=== PATIENT | male | born 1945 | race Caucasian/White ===

== ENCOUNTER 2016-12-01 10:38 | Inpatient (IN) | payer MEDICARE, MEDICAID ==
[2016-12-01] VITALS (8 sets, daily range): BP systolic 132–186; BP diastolic 40–94
[~2016-12-01] VITALS: Ht 165.1 cm; Wt 60.8 kg
[2016-12-01 12:11] LABS: HEMATOCRIT 38.4 % (42.0-52.0); HEMOGLOBIN 12.5 g/dL (14.0-18.0); MEAN CORPUSCULAR HEMOGLOBIN 30.2 pg (28.0-32.0); MEAN CORPUSCULAR HGB CONC 32.6 g/dL (31.0-37.0); MEAN CORPUSCULAR VOLUME 92.6 fL (80.0-94.0); PLATELET 101 x1000/uL (130-400); RED BLOOD CELL COUNT 4.15 mill/uL (4.7-6.1); RED CELL DISTRIBUTION WIDTH 15.6 % (11.6-14.6); WHITE BLOOD COUNT 3.6 x1000/uL (4.5-11.0)
[2016-12-01 12:19] LABS: INR 1.1
[2016-12-01] MEDS ORDERED: ASPIRIN/SOD BICARB/CITRIC ACID 324MG TAB EFF ONE (12:21)
[2016-12-01 12:23] LABS: CALCIUM 8.9 mg/dL (8.5-10.1)
[2016-12-01] MEDS ORDERED: MIDAZOLAM HCL 2 MG/2 ML VIAL ONE (12:55)
[2016-12-01] MEDS ORDERED: IODIXANOL 320MG/ML 100 ML BOTTLE IV ONE ×2 (12:55→13:32)
[2016-12-01] MEDS ORDERED: FENTANYL CITRATE/PF 50MCG/ML 2ML VIAL ONE (12:55)
[2016-12-01] MEDS ORDERED: LIDOCAINE HCL 1% 20ML VIAL (Pyxis) INJ ONE (12:56)
[2016-12-01] MEDS ORDERED: HEPARIN SODIUM 1,000 UNIT/1ML VIAL IV ONE ×2 (13:00→13:30)
[2016-12-01] MEDS ORDERED: IOVERSOL 240MG/ML 100ML BOTTLE IV ONE (13:32)
[2016-12-01] MEDS ORDERED: CLOPIDOGREL 75MG TABLET ONE (14:38)
[2016-12-01] MEDS ORDERED: ATROPINE SULFATE 1MG/10ML SYR IV PRN (15:00)
[2016-12-01] MEDS ORDERED: ONDANSETRON HCL 4MG/2ML VIAL IV PRN (15:00)
[2016-12-01] MEDS ORDERED: MORPHINE SULFATE 2 MG/ML CPJ (NOT FOR IM USE) IV PRN (15:00)
[2016-12-01] MEDS ORDERED: DEXTROSE 50% WATER 50ML SYRINGE IV PRN (15:00)
[2016-12-01] MEDS ORDERED: ACETAMINOPHEN 325MG TABLET PO PRN (15:00)
[2016-12-01] MEDS: INSULIN LISPRO 100 UNITS/ML SUBCUT SCH ×2 (17:20→20:56)
[2016-12-01] MEDS: BLOOD SUGAR DIAGNOSTIC STRIP TEST SCH ×2 (17:33→20:56)
[2016-12-01 19:49] LABS: INR 1.1; PARTIAL THROMBOPLASTIN TIME 34.1 sec (24.0-34.0); PROTHROMBIN TIME 11.3 sec
[2016-12-02] VITALS (8 sets, daily range): BP systolic 105–142; BP diastolic 48–61
[2016-12-02] MEDS: METOPROLOL TARTRATE 25MG TABLET PO SCH ×2 (00:19→09:00)
[2016-12-02 06:40] LABS: BASOPHILS % 0.5 % (0.0-2.0); EOSINOPHILS % 2.6 % (0.0-5.0); HEMATOCRIT. 33.7 % (42.0-52.0); HEMOGLOBIN. 11.1 g/dL (14.0-18.0); LYMPHOCYTES % 19.6 % (20.0-50.0); MEAN CORPUSCULAR HEMOGLOBIN 30.1 pg (28.0-32.0); MEAN CORPUSCULAR VOLUME 91.2 fL (80.0-94.0); MEAN PLATELET VOLUME 11.1 fl (7.4-10.4); MONOCYTES % 11.6 % (2.0-8.0); NEUTROPHILS % 65.7 % (40.0-76.0); PLATELET 101 x1000/uL (130-400); RED BLOOD CELL COUNT 3.69 mill/uL (4.7-6.1); RED CELL DISTRIBUTION WIDTH 15.3 % (11.6-14.6)
[2016-12-02] MEDS: INSULIN LISPRO 100 UNITS/ML SUBCUT SCH (06:52)
[2016-12-02] MEDS: BLOOD SUGAR DIAGNOSTIC STRIP TEST SCH (06:52)
[2016-12-02 07:30] LABS: CALCIUM 8.4 mg/dL (8.5-10.1); MAGNESIUM 3.1 mg/dL (1.8-2.4); PHOSPHORUS 3.5 mg/dL (2.5-4.9)
[2016-12-02] MEDS ORDERED: ASPIRIN 325MG TABLET PO SCH (09:00)
[2016-12-02] MEDS ORDERED: CLOPIDOGREL 75MG TABLET PO SCH (09:00)
== END 2016-12-02 12:45 | disposition home or self-care (01) | DRG 246 ==
LOC: CCL 10:38 → 3WST 15:10
PROVIDERS: ADMIT Specialist; ATTEND Specialist
PROC: 027035Z Dilation of Coronary Artery, One Artery with Two Drug-eluting Intraluminal Devices, Percutaneous Approach (ICD-10-PCS; principal; 2016-12-01)
PROC: B2131ZZ Fluoroscopy of Multiple Coronary Artery Bypass Grafts using Low Osmolar Contrast (ICD-10-PCS; 2016-12-01)
PROC: B3111ZZ Fluoroscopy of Right Brachiocephalic-Subclavian Artery using Low Osmolar Contrast (ICD-10-PCS; 2016-12-01)
PROC: 4A023N7 Measurement of Cardiac Sampling and Pressure, Left Heart, Percutaneous Approach (ICD-10-PCS; 2016-12-01)
PROC: B2111ZZ Fluoroscopy of Multiple Coronary Arteries using Low Osmolar Contrast (ICD-10-PCS; 2016-12-01)
PROC: B2161ZZ Fluoroscopy of Right and Left Heart using Low Osmolar Contrast (ICD-10-PCS; 2016-12-01)
PROC: B2121ZZ Fluoroscopy of Single Coronary Artery Bypass Graft using Low Osmolar Contrast (ICD-10-PCS; 2016-12-01)
PROC: B2181ZZ Fluoroscopy of Left Internal Mammary Bypass Graft using Low Osmolar Contrast (ICD-10-PCS; 2016-12-01)
DX: I25.10 Atherosclerotic heart disease of native coronary artery without angina pectoris (principal); N18.6 End stage renal disease; I13.11 Hypertensive heart and chronic kidney disease without heart failure, with stage 5 chronic kidney disease, or end stage renal disease; I47.1 Supraventricular tachycardia; E11.21 Type 2 diabetes mellitus with diabetic nephropathy; I42.0 Dilated cardiomyopathy; E11.22 Type 2 diabetes mellitus with diabetic chronic kidney disease; E11.51 Type 2 diabetes mellitus with diabetic peripheral angiopathy without gangrene; E78.00 Pure hypercholesterolemia, unspecified; E78.5 Hyperlipidemia, unspecified; E83.39 Other disorders of phosphorus metabolism; E87.5 Hyperkalemia; I25.5 Ischemic cardiomyopathy; I25.82 Chronic total occlusion of coronary artery; I08.1 Rheumatic disorders of both mitral and tricuspid valves; I27.2 Other secondary pulmonary hypertension; D64.9 Anemia, unspecified; I49.5 Sick sinus syndrome; I70.8 Atherosclerosis of other arteries; I77.1 Stricture of artery; Z90.49 Acquired absence of other specified parts of digestive tract; Z90.5 Acquired absence of kidney; Z95.0 Presence of cardiac pacemaker; Z95.1 Presence of aortocoronary bypass graft; Z99.2 Dependence on renal dialysis; Z98.890 Other specified postprocedural states
CPT/HCPCS: 36415; 80048; 82962; 83735; 84100; 84132; 85025; 85027; 85347; 85610; 85730; 92928; 93005; 93459; C1725; C1726; C1769; C1887; C1893; J0461; J1644; J2250; J3010; J3490; Q9967

== ENCOUNTER 2017-06-28 13:42 | Inpatient (IN) | payer MEDICARE, MEDICAID ==
[~2017-06-28] VITALS: Ht 165.1 cm; Wt 63.3 kg
[~2017-06-28 13:42] MED LIST: ACAR50TA PO; ASPI-1159 PO; ATOR10TA PO; CILO100T PO; CLOP75TA33 PO; DOCU-138 PO; FAMO20TA8 PO; FERR-63 PO; FOLI-43 PO; FOLI0.8T23 PO; LOPE2TAB26 PO; METO25TA6 PO; SEVE800T8 PO; SITA50TA3 PO
[2017-06-28] MEDS ORDERED: ACETAMINOPHEN 325MG TABLET PO STA (14:00)
[2017-06-28] MEDS ORDERED: SODIUM CHLORIDE 0.9% 250 ML IV ONE (14:00)
[2017-06-28 14:39] LABS: INR 1.4; PROTHROMBIN TIME 14.7 sec (9.4-11.6)
[2017-06-28 14:41] LABS: HEMATOCRIT. 30.1 % (42.0-52.0); HEMOGLOBIN. 10.2 g/dL (14.0-18.0); MEAN CORPUSCULAR VOLUME 85.3 fL (80.0-94.0); MEAN PLATELET VOLUME 10.2 fl (7.4-10.4); PLATELET 249 x1000/uL (130-400); RED BLOOD CELL COUNT 3.52 mill/uL (4.7-6.1); RED CELL DISTRIBUTION WIDTH 18.5 % (11.6-14.6)
[2017-06-28 14:54] LABS: CARBON DIOXIDE 27 mEq/L (21-32); CHLORIDE 89 mEq/L (98-107)
[2017-06-28] MEDS ORDERED: VANCOMYCIN 1 G PREMIX 200 ML IV ONE (15:00)
[2017-06-28] MEDS ORDERED: PIPERACILLIN/TAZ 3.375G PREMIX 50 ML IV ONE (15:00)
[2017-06-28 15:53] LABS: TROPONIN I 0.63 ng/mL (0.00-0.04)
[2017-06-28] MEDS ORDERED: ASPIRIN 81MG TABLET PO ONE (16:00)
[2017-06-28 16:21] LABS: PLATELET ESTIMATE NORMAL
[2017-06-28 23:00] VITALS: BP 90/41
[2017-06-28 23:14] VITALS: BP 90/41
[2017-06-29] VITALS (15 sets, daily range): BP systolic 83–112; BP diastolic 39–55
[2017-06-29] MEDS ORDERED: DEXTROSE 50% WATER 50ML SYRINGE IV PRN (00:15)
[2017-06-29] MEDS: BLOOD SUGAR DIAGNOSTIC STRIP TEST SCH ×4 (05:48→21:11)
[2017-06-29] MEDS: INSULIN LISPRO 100 UNITS/ML SUBCUT SCH ×5 (05:48→21:11)
[2017-06-29 07:42] LABS: HEMATOCRIT. 34.9 % (42.0-52.0); HEMOGLOBIN. 11.3 g/dL (14.0-18.0); MEAN CORPUSCULAR VOLUME 86.4 fL (80.0-94.0); MEAN PLATELET VOLUME 9.5 fl (7.4-10.4); PLATELET 134 x1000/uL (130-400); RED BLOOD CELL COUNT 4.04 mill/uL (4.7-6.1); RED CELL DISTRIBUTION WIDTH 17.4 % (11.6-14.6)
[2017-06-29 08:06] LABS: PHOSPHORUS 1.9 mg/dL (2.5-4.9)
[2017-06-29] MEDS: FOLIC ACID/VITAMIN B COMP W-C TABLET PO SCH (09:29)
[2017-06-29] MEDS: PIPERACILLIN/TAZ 2.25G PREMIX 50 ML IV SCH ×3 (09:30→21:11)
[2017-06-29] MEDS ORDERED: POTASSIUM CHLORIDE 20MEQ TABLET SR PO NR (13:00)
[2017-06-29 16:41] LABS: PLATELET ESTIMATE NORMAL
[2017-06-29] MEDS ORDERED: VANCOMYCIN 500 MG PREMIX 100 ML IV SCH (18:00)
[2017-06-29] MEDS: LOPERAMIDE HCL 2MG CAPSULE PO PRN (21:10)
[2017-06-29] MEDS: ATORVASTATIN CALCIUM 10MG TABLET PO SCH (21:10)
[2017-06-30] VITALS (12 sets, daily range): BP systolic 93–120; BP diastolic 47–62
[2017-06-30] MEDS: PIPERACILLIN/TAZ 2.25G PREMIX 50 ML IV SCH ×3 (05:47→21:25)
[2017-06-30 06:26] LABS: BASOPHILS % 0.6 % (0.0-2.0); EOSINOPHILS % 2.3 % (0.0-5.0); HEMATOCRIT. 33.7 % (42.0-52.0); LYMPHOCYTES % 12.1 % (20.0-50.0); MEAN CORPUSCULAR HEMOGLOBIN 28.2 pg (28.0-32.0); MEAN CORPUSCULAR VOLUME 86.6 fL (80.0-94.0); MEAN PLATELET VOLUME 9.5 fl (7.4-10.4); MONOCYTES % 11.9 % (2.0-8.0); NEUTROPHILS % 73.1 % (40.0-76.0); PLATELET 128 x1000/uL (130-400); RED BLOOD CELL COUNT 3.89 mill/uL (4.7-6.1)
[2017-06-30] MEDS: BLOOD SUGAR DIAGNOSTIC STRIP TEST SCH ×4 (06:29→21:25)
[2017-06-30 06:59] LABS: CARBON DIOXIDE 24 mEq/L (21-32); CHLORIDE 100 mEq/L (98-107); PHOSPHORUS 2.1 mg/dL (2.5-4.9)
[2017-06-30] MEDS: INSULIN LISPRO 100 UNITS/ML SUBCUT SCH ×4 (07:06→21:00)
[2017-06-30] MEDS: FOLIC ACID/VITAMIN B COMP W-C TABLET PO SCH (08:21)
[2017-06-30] MEDS: ATORVASTATIN CALCIUM 10MG TABLET PO SCH (21:25)
[2017-06-30] MEDS: LOPERAMIDE HCL 2MG CAPSULE PO PRN (21:25)
[2017-06-30] MEDS: ACETAMINOPHEN 650MG/20.3ML UDC PO PRN (22:17)
[2017-07-01] VITALS (12 sets, daily range): BP systolic 98–138; BP diastolic 47–85
[2017-07-01] MEDS: PIPERACILLIN/TAZ 2.25G PREMIX 50 ML IV SCH ×3 (06:02→23:40)
[2017-07-01] MEDS: BLOOD SUGAR DIAGNOSTIC STRIP TEST SCH ×4 (06:04→20:50)
[2017-07-01] MEDS: INSULIN LISPRO 100 UNITS/ML SUBCUT SCH ×4 (06:46→20:55)
[2017-07-01 06:59] LABS: BASOPHILS % 0.6 % (0.0-2.0); EOSINOPHILS % 2.3 % (0.0-5.0); HEMATOCRIT. 32.4 % (42.0-52.0); HEMOGLOBIN. 10.2 g/dL (14.0-18.0); LYMPHOCYTES % 16.9 % (20.0-50.0); MEAN CORPUSCULAR HEMOGLOBIN 27.5 pg (28.0-32.0); MEAN CORPUSCULAR VOLUME 86.7 fL (80.0-94.0); MEAN PLATELET VOLUME 9.8 fl (7.4-10.4); MONOCYTES % 10.8 % (2.0-8.0); NEUTROPHILS % 69.4 % (40.0-76.0); PLATELET 121 x1000/uL (130-400); RED BLOOD CELL COUNT 3.73 mill/uL (4.7-6.1); RED CELL DISTRIBUTION WIDTH 17.7 % (11.6-14.6)
[2017-07-01 07:25] LABS: CARBON DIOXIDE 25 mEq/L (21-32); PHOSPHORUS 2.7 mg/dL (2.5-4.9)
[2017-07-01 07:56] LABS: CHLORIDE 98 mEq/L (98-107)
[2017-07-01] MEDS: FOLIC ACID/VITAMIN B COMP W-C TABLET PO SCH (08:57)
[2017-07-01] MEDS: ACETAMINOPHEN 650MG/20.3ML UDC PO PRN (11:29)
[2017-07-01] MEDS ORDERED: ASPIRIN 81MG EC TABLET PO SCH (11:45)
[2017-07-01] MEDS ORDERED: VANCOMYCIN 750 MG PREMIX 150 ML IV SCH ×2 (12:00→16:00)
[2017-07-01] MEDS: AMIODARONE HCL 200 MG TABLET PO SCH ×2 (12:30→20:33)
[2017-07-01] MEDS ORDERED: ASPIRIN 325MG EC TABLET PO SCH (12:30)
[2017-07-01] MEDS: CLOPIDOGREL 75MG TABLET PO SCH (12:30)
[2017-07-01] MEDS ORDERED: FENTANYL CITRATE/PF 50MCG/ML 2ML VIAL ONE (12:52)
[2017-07-01] MEDS ORDERED: LIDOCAINE HCL 1% 20ML VIAL (Pyxis) INJ ONE ×2 (12:52→12:56)
[2017-07-01] MEDS ORDERED: ASPIRIN/SOD BICARB/CITRIC ACID 324MG TAB EFF ONE (12:52)
[2017-07-01] MEDS ORDERED: MIDAZOLAM HCL 2 MG/2 ML VIAL ONE (12:52)
[2017-07-01] MEDS ORDERED: IODIXANOL 320MG/ML 100 ML BOTTLE IV ONE (12:52)
[2017-07-01] MEDS ORDERED: HEPARIN SODIUM 1,000 UNIT/1ML VIAL IV ONE (13:19)
[2017-07-01] MEDS ORDERED: ACETAMINOPHEN 325MG TABLET PO PRN (14:30)
[2017-07-01] MEDS ORDERED: ATROPINE SULFATE 1MG/10ML SYR IV PRN (14:30)
[2017-07-01] MEDS: ATORVASTATIN CALCIUM 10MG TABLET PO SCH (20:33)
[2017-07-01] MEDS ORDERED: ATROPINE SULFATE 1MG/10ML SYR ONE (20:44)
[2017-07-02] VITALS (24 sets, daily range): BP systolic 99–162; BP diastolic 37–94
[2017-07-02] MEDS: PIPERACILLIN/TAZ 2.25G PREMIX 50 ML IV SCH ×3 (05:28→21:11)
[2017-07-02] MEDS: BLOOD SUGAR DIAGNOSTIC STRIP TEST SCH ×4 (05:50→21:11)
[2017-07-02 06:51] LABS: BASOPHILS % 0.6 % (0.0-2.0); EOSINOPHILS % 3.1 % (0.0-5.0); HEMATOCRIT. 34.5 % (42.0-52.0); HEMOGLOBIN. 11.4 g/dL (14.0-18.0); MEAN CORPUSCULAR HEMOGLOBIN 28.4 pg (28.0-32.0); MEAN CORPUSCULAR VOLUME 86.4 fL (80.0-94.0); MEAN PLATELET VOLUME 9.8 fl (7.4-10.4); NEUTROPHILS % 73.3 % (40.0-76.0); PLATELET 130 x1000/uL (130-400); RED CELL DISTRIBUTION WIDTH 17.6 % (11.6-14.6)
[2017-07-02 07:14] LABS: CHLORIDE 99 mEq/L (98-107)
[2017-07-02] MEDS: INSULIN LISPRO 100 UNITS/ML SUBCUT SCH ×4 (07:20→21:00)
[2017-07-02 07:26] LABS: CARBON DIOXIDE 24 mEq/L (21-32); TROPONIN I 0.15 ng/mL (0.00-0.04)
[2017-07-02] MEDS ORDERED: GENTAMICIN SULF 40MG/ML 2ML VIAL ONE (08:24)
[2017-07-02] MEDS ORDERED: BUPIVACAINE HCL/PF 0.5% (5MG/ML) 10ML ONE (08:24)
[2017-07-02] MEDS ORDERED: LIDOCAINE HCL 1% 20ML VIAL (Pyxis) INJ ONE ×2 (08:25→08:30)
[2017-07-02] MEDS ORDERED: MIDAZOLAM HCL 2 MG/2 ML VIAL ONE (08:29)
[2017-07-02] MEDS ORDERED: FENTANYL CITRATE/PF 50MCG/ML 2ML VIAL ONE (08:29)
[2017-07-02] MEDS ORDERED: PROPOFOL 200MG/20ML VIAL IV ONE (08:30)
[2017-07-02] MEDS ORDERED: DIPHENHYDRAMINE 50MG/ML VIAL ONE (08:30)
[2017-07-02] MEDS ORDERED: SODIUM CHLORIDE 0.9% 10ML VIAL ONE ×2 (08:54→09:14)
[2017-07-02] MEDS ORDERED: EPHEDRINE SULFATE 50MG/ML VIAL ONE (08:54)
[2017-07-02] MEDS ORDERED: BACITRACIN 50,000 UNITS/VIAL ONE (08:55)
[2017-07-02] MEDS ORDERED: NORMAL SALINE 0.9% 10 ML SYR ONE (08:55)
[2017-07-02] MEDS ORDERED: BACITRACIN ZINC 15GM TUBE TOP ONE (09:13)
[2017-07-02] MEDS ORDERED: PHENYLEPHRINE HCL 10 MG/ML 1ML (IV VIAL) IV ONE (09:14)
[2017-07-02] MEDS ORDERED: MORPHINE SULFATE 2 MG/ML CPJ (NOT FOR IM USE) IV PRN (10:00)
[2017-07-02] MEDS: FOLIC ACID/VITAMIN B COMP W-C TABLET PO SCH (11:02)
[2017-07-02] MEDS: ASPIRIN 81MG EC TABLET PO SCH ×2 (11:02→16:38)
[2017-07-02] MEDS: CLOPIDOGREL 75MG TABLET PO SCH (11:02)
[2017-07-02] MEDS: AMIODARONE HCL 200 MG TABLET PO SCH ×2 (11:02→21:11)
[2017-07-02] MEDS: ATORVASTATIN CALCIUM 10MG TABLET PO SCH (21:11)
[2017-07-03] VITALS (16 sets, daily range): BP systolic 110–138; BP diastolic 39–66
[2017-07-03] MEDS: PIPERACILLIN/TAZ 2.25G PREMIX 50 ML IV SCH ×3 (05:28→22:00)
[2017-07-03 06:34] LABS: BASOPHILS % 0.7 % (0.0-2.0); EOSINOPHILS % 2.1 % (0.0-5.0); HEMATOCRIT. 29.5 % (42.0-52.0); HEMOGLOBIN. 9.4 g/dL (14.0-18.0); LYMPHOCYTES % 13.2 % (20.0-50.0); MEAN CORPUSCULAR HEMOGLOBIN 27.4 pg (28.0-32.0); MEAN CORPUSCULAR VOLUME 85.8 fL (80.0-94.0); MEAN PLATELET VOLUME 9.1 fl (7.4-10.4); MONOCYTES % 6.8 % (2.0-8.0); NEUTROPHILS % 77.2 % (40.0-76.0); PLATELET 126 x1000/uL (130-400); RED BLOOD CELL COUNT 3.44 mill/uL (4.7-6.1); RED CELL DISTRIBUTION WIDTH 17.8 % (11.6-14.6)
[2017-07-03] MEDS: INSULIN LISPRO 100 UNITS/ML SUBCUT SCH ×4 (06:35→22:01)
[2017-07-03] MEDS: BLOOD SUGAR DIAGNOSTIC STRIP TEST SCH ×4 (06:35→21:00)
[2017-07-03] MEDS: MORPHINE SULFATE 4 MG/ML CPJ (NOT FOR IM USE) IV PRN ×2 (06:47→18:01)
[2017-07-03 08:32] LABS: PHOSPHORUS 4.2 mg/dL (2.5-4.9)
[2017-07-03] MEDS: FOLIC ACID/VITAMIN B COMP W-C TABLET PO SCH (09:04)
[2017-07-03] MEDS: AMIODARONE HCL 200 MG TABLET PO SCH ×2 (09:04→21:58)
[2017-07-03] MEDS: ASPIRIN 81MG EC TABLET PO SCH ×2 (09:04→18:01)
[2017-07-03] MEDS: CLOPIDOGREL 75MG TABLET PO SCH (09:04)
[2017-07-03] MEDS: ATORVASTATIN CALCIUM 10MG TABLET PO SCH (21:58)
[2017-07-03] MEDS: HYDROCODONE/ACETAMINOPHEN 5/325MG TABLET PO PRN (22:00)
[2017-07-04] VITALS (12 sets, daily range): BP systolic 103–132; BP diastolic 43–74
[2017-07-04] MEDS: MORPHINE SULFATE 4 MG/ML CPJ (NOT FOR IM USE) IV PRN (00:02)
[2017-07-04] MEDS: PIPERACILLIN/TAZ 2.25G PREMIX 50 ML IV SCH (05:17)
[2017-07-04] MEDS: BLOOD SUGAR DIAGNOSTIC STRIP TEST SCH ×4 (07:03→21:00)
[2017-07-04] MEDS: INSULIN LISPRO 100 UNITS/ML SUBCUT SCH ×4 (07:03→21:00)
[2017-07-04] MEDS: AMIODARONE HCL 200 MG TABLET PO SCH ×2 (08:00→20:31)
[2017-07-04] MEDS: FOLIC ACID/VITAMIN B COMP W-C TABLET PO SCH (08:00)
[2017-07-04] MEDS: ASPIRIN 81MG EC TABLET PO SCH ×2 (08:00→17:06)
[2017-07-04] MEDS: CLOPIDOGREL 75MG TABLET PO SCH (08:00)
[2017-07-04] MEDS ORDERED: BISACODYL 10MG SUPP PR PRN (09:30)
[2017-07-04] MEDS ORDERED: SORBITOL 70% SOLN 30ML PO PRN (09:30)
[2017-07-04] MEDS ORDERED: DOCUSATE SODIUM SUGAR FREE 100MG/10ML UDC NG SCH (10:00)
[2017-07-04] MEDS: HYDROCODONE/ACETAMINOPHEN 5/325MG TABLET PO PRN ×2 (11:26→15:32)
[2017-07-04] MEDS: CALCIUM ACETATE 667MG CAPSULE PO SCH ×2 (11:26→17:06)
[2017-07-04] MEDS: DOCUSATE SODIUM SUGAR FREE 100MG/10ML UDC NG SCH ×2 (14:15→20:31)
[2017-07-04] MEDS: CEFAZOLIN 2,000 MG in DEXT 5% WATER 100 ML IV SCH (14:56)
[2017-07-04] MEDS: ATORVASTATIN CALCIUM 10MG TABLET PO SCH (20:31)
[2017-07-05] VITALS (13 sets, daily range): BP systolic 107–133; BP diastolic 33–86
[2017-07-05] MEDS: HYDROCODONE/ACETAMINOPHEN 5/325MG TABLET PO PRN (01:18)
[2017-07-05 06:34] LABS: BASOPHILS % 0.9 % (0.0-2.0); EOSINOPHILS % 2.6 % (0.0-5.0); HEMATOCRIT. 29.6 % (42.0-52.0); HEMOGLOBIN. 9.6 g/dL (14.0-18.0); LYMPHOCYTES % 14.8 % (20.0-50.0); MEAN CORPUSCULAR HEMOGLOBIN 28.1 pg (28.0-32.0); MEAN CORPUSCULAR VOLUME 86.3 fL (80.0-94.0); MEAN PLATELET VOLUME 9.3 fl (7.4-10.4); MONOCYTES % 10.1 % (2.0-8.0); NEUTROPHILS % 71.6 % (40.0-76.0); PLATELET 132 x1000/uL (130-400); RED BLOOD CELL COUNT 3.43 mill/uL (4.7-6.1); RED CELL DISTRIBUTION WIDTH 18.2 % (11.6-14.6)
[2017-07-05] MEDS: BLOOD SUGAR DIAGNOSTIC STRIP TEST SCH ×4 (06:45→21:00)
[2017-07-05] MEDS: INSULIN LISPRO 100 UNITS/ML SUBCUT SCH ×4 (07:12→21:00)
[2017-07-05] MEDS: CALCIUM ACETATE 667MG CAPSULE PO SCH ×3 (07:12→17:57)
[2017-07-05 08:02] LABS: CARBON DIOXIDE 25 mEq/L (21-32); CHLORIDE 100 mEq/L (98-107); PHOSPHORUS 3.8 mg/dL (2.5-4.9)
[2017-07-05] MEDS: DOCUSATE SODIUM SUGAR FREE 100MG/10ML UDC NG SCH ×2 (09:00→17:00)
[2017-07-05] MEDS ORDERED: LIDOCAINE HCL 1% 20ML VIAL (Pyxis) INJ ONE (09:07)
[2017-07-05] MEDS ORDERED: SODIUM BICARBONATE 4% (2.4MEQ) 5ML VIAL IV ONE (09:07)
[2017-07-05] MEDS: FOLIC ACID/VITAMIN B COMP W-C TABLET PO SCH (11:23)
[2017-07-05] MEDS: ASPIRIN 81MG EC TABLET PO SCH ×2 (11:24→17:57)
[2017-07-05] MEDS: AMIODARONE HCL 200 MG TABLET PO SCH ×2 (11:24→21:05)
[2017-07-05] MEDS: CLOPIDOGREL 75MG TABLET PO SCH (11:24)
[2017-07-05] MEDS: CEFAZOLIN 2,000 MG in DEXT 5% WATER 100 ML IV SCH (15:04)
[2017-07-05] MEDS: ATORVASTATIN CALCIUM 10MG TABLET PO SCH (21:05)
[2017-07-06] VITALS (14 sets, daily range): BP systolic 91–148; BP diastolic 18–91
[2017-07-06 05:57] LABS: PHOSPHORUS 3.1 mg/dL (2.5-4.9); PREALBUMIN 5.7 mg/dL (20.0-40.0)
[2017-07-06 06:03] LABS: BASOPHILS % 0.7 % (0.0-2.0); HEMOGLOBIN. 9.5 g/dL (14.0-18.0); LYMPHOCYTES % 12.5 % (20.0-50.0); MEAN CORPUSCULAR HEMOGLOBIN 27.4 pg (28.0-32.0); MONOCYTES % 9.3 % (2.0-8.0); NEUTROPHILS % 76.5 % (40.0-76.0); RED BLOOD CELL COUNT 3.45 mill/uL (4.7-6.1); RED CELL DISTRIBUTION WIDTH 18.6 % (11.6-14.6)
[2017-07-06] MEDS: BLOOD SUGAR DIAGNOSTIC STRIP TEST SCH ×4 (06:15→21:03)
[2017-07-06 07:07] LABS: MEAN PLATELET VOLUME 9.9 fl (7.4-10.4)
[2017-07-06 07:08] LABS: PLATELET 148 x1000/uL (130-400)
[2017-07-06] MEDS: CALCIUM ACETATE 667MG CAPSULE PO SCH ×3 (07:20→17:20)
[2017-07-06] MEDS: INSULIN LISPRO 100 UNITS/ML SUBCUT SCH ×4 (07:20→21:00)
[2017-07-06] MEDS: ONDANSETRON HCL 4MG/2ML VIAL IV PRN ×2 (07:59→14:30)
[2017-07-06] MEDS: CLOPIDOGREL 75MG TABLET PO SCH ×2 (09:00→15:04)
[2017-07-06] MEDS: AMIODARONE HCL 200 MG TABLET PO SCH ×2 (09:00→21:01)
[2017-07-06] MEDS: DOCUSATE SODIUM SUGAR FREE 100MG/10ML UDC NG SCH ×2 (09:00→17:34)
[2017-07-06] MEDS: FOLIC ACID/VITAMIN B COMP W-C TABLET PO SCH (09:00)
[2017-07-06] MEDS: ASPIRIN 81MG EC TABLET PO SCH ×2 (09:00→17:34)
[2017-07-06] MEDS ORDERED: BISACODYL 10MG SUPP PR NR (10:45)
[2017-07-06] MEDS: METOCLOPRAMIDE HCL 10MG/2ML VIAL IV SCH ×2 (11:39→17:33)
[2017-07-06] MEDS: OMEPRAZOLE 20MG CAPSULE EXTENDED RELEASE PO SCH ×2 (11:39→17:34)
[2017-07-06] MEDS: CEFAZOLIN 2,000 MG in DEXT 5% WATER 100 ML IV SCH (14:30)
[2017-07-06] MEDS: ATORVASTATIN CALCIUM 10MG TABLET PO SCH (21:00)
[2017-07-07] VITALS (16 sets, daily range): BP systolic 87–128; BP diastolic 15–84
[2017-07-07] MEDS: METOCLOPRAMIDE HCL 10MG/2ML VIAL IV SCH (05:59)
[2017-07-07] MEDS: OMEPRAZOLE 20MG CAPSULE EXTENDED RELEASE PO SCH (05:59)
[2017-07-07] MEDS: BLOOD SUGAR DIAGNOSTIC STRIP TEST SCH ×2 (06:03→11:58)
[2017-07-07 06:05] LABS: BASOPHILS % 0.9 % (0.0-2.0); EOSINOPHILS % 1.4 % (0.0-5.0); HEMOGLOBIN. 9.6 g/dL (14.0-18.0); LYMPHOCYTES % 11.9 % (20.0-50.0); MEAN CORPUSCULAR HEMOGLOBIN 27.6 pg (28.0-32.0); MEAN CORPUSCULAR VOLUME 86.7 fL (80.0-94.0); MEAN PLATELET VOLUME 9.5 fl (7.4-10.4); MONOCYTES % 7.8 % (2.0-8.0); PLATELET 176 x1000/uL (130-400); RED BLOOD CELL COUNT 3.46 mill/uL (4.7-6.1); RED CELL DISTRIBUTION WIDTH 19.3 % (11.6-14.6)
[2017-07-07 06:48] LABS: CHLORIDE 99 mEq/L (98-107)
[2017-07-07] MEDS: INSULIN LISPRO 100 UNITS/ML SUBCUT SCH ×2 (07:20→12:34)
[2017-07-07 07:34] LABS: CARBON DIOXIDE 22 mEq/L (21-32); PHOSPHORUS 4.2 mg/dL (2.5-4.9)
[2017-07-07] MEDS: FOLIC ACID/VITAMIN B COMP W-C TABLET PO SCH (07:51)
[2017-07-07] MEDS: DOCUSATE SODIUM SUGAR FREE 100MG/10ML UDC NG SCH (07:51)
[2017-07-07] MEDS: ASPIRIN 81MG EC TABLET PO SCH (07:51)
[2017-07-07] MEDS: AMIODARONE HCL 200 MG TABLET PO SCH (07:51)
[2017-07-07] MEDS: CLOPIDOGREL 75MG TABLET PO SCH (07:51)
[2017-07-07] MEDS: CALCIUM ACETATE 667MG CAPSULE PO SCH ×2 (07:51→12:32)
[2017-07-07] MEDS: CEFAZOLIN 2,000 MG in DEXT 5% WATER 100 ML IV SCH (14:40)
[2017-07-07] MEDS ORDERED: EPOETIN ALFA 4000UNITS/ML VIAL SUBCUT SCH (21:00)
[2017-07-08] MEDS ORDERED: AMIODARONE HCL 200 MG TABLET PO SCH (09:00)
[2017-07-08] MEDS ORDERED: FAMOTIDINE 20MG TABLET PO SCH (09:00)
== END 2017-07-07 17:36 | DRG 853 ==
LOC: ER 14:23 → EDBEDREQ 15:40 → EDBEDREQTM 15:40 → EDBEDREQ 16:07 → CANRESERV 20:28 → ENRESERV 20:28 → 3WST 21:39 → EDBEDREQSVC 21:40 → EDBEDREQTM 21:40 → EDBEDREQ 21:40 → ENRESERV 21:45
PROVIDERS: ADMIT Internal Medicine; ATTEND Internal Medicine
PROC: 5A1D70Z Performance of Urinary Filtration, Intermittent, Less than 6 Hours Per Day (ICD-10-PCS; 2017-06-29)
PROC: B41F1ZZ Fluoroscopy of Right Lower Extremity Arteries using Low Osmolar Contrast (ICD-10-PCS; 2017-07-01)
PROC: 0J9Q00Z Drainage of Right Foot Subcutaneous Tissue and Fascia with Drainage Device, Open Approach (ICD-10-PCS; 2017-07-02)
PROC: 0Y6M0ZD Detachment at Right Foot, Partial 4th Ray, Open Approach (ICD-10-PCS; 2017-07-02)
PROC: 0Y6M0ZF Detachment at Right Foot, Partial 5th Ray, Open Approach (ICD-10-PCS; 2017-07-02)
PROC: 0Y6M0ZC Detachment at Right Foot, Partial 3rd Ray, Open Approach (ICD-10-PCS; principal; 2017-07-02 08:00)
PROC: 02HV33Z Insertion of Infusion Device into Superior Vena Cava, Percutaneous Approach (ICD-10-PCS; 2017-07-05)
PROC: B5181ZA Fluoroscopy of Superior Vena Cava using Low Osmolar Contrast, Guidance (ICD-10-PCS; 2017-07-05)
PROC: B548ZZA Ultrasonography of Superior Vena Cava, Guidance (ICD-10-PCS; 2017-07-05)
DX: A41.9 Sepsis, unspecified organism (principal); E43 Unspecified severe protein-calorie malnutrition; E11.52 Type 2 diabetes mellitus with diabetic peripheral angiopathy with gangrene; E11.22 Type 2 diabetes mellitus with diabetic chronic kidney disease; D69.6 Thrombocytopenia, unspecified; E11.621 Type 2 diabetes mellitus with foot ulcer; N18.6 End stage renal disease; I12.0 Hypertensive chronic kidney disease with stage 5 chronic kidney disease or end stage renal disease; L02.611 Cutaneous abscess of right foot; E87.1 Hypo-osmolality and hyponatremia; I13.11 Hypertensive heart and chronic kidney disease without heart failure, with stage 5 chronic kidney disease, or end stage renal disease; I42.9 Cardiomyopathy, unspecified; M86.9 Osteomyelitis, unspecified; Z99.2 Dependence on renal dialysis; D50.9 Iron deficiency anemia, unspecified; E11.69 Type 2 diabetes mellitus with other specified complication; E78.00 Pure hypercholesterolemia, unspecified; E78.5 Hyperlipidemia, unspecified; I25.10 Atherosclerotic heart disease of native coronary artery without angina pectoris; I48.0 Paroxysmal atrial fibrillation; K59.00 Constipation, unspecified; I49.5 Sick sinus syndrome; L97.519 Non-pressure chronic ulcer of other part of right foot with unspecified severity; Z82.49 Family history of ischemic heart disease and other diseases of the circulatory system; Z83.3 Family history of diabetes mellitus; Z90.49 Acquired absence of other specified parts of digestive tract; Z90.5 Acquired absence of kidney; Z95.1 Presence of aortocoronary bypass graft; Z95.5 Presence of coronary angioplasty implant and graft; Z95.820 Peripheral vascular angioplasty status with implants and grafts; Z68.23 Body mass index [BMI] 23.0-23.9, adult; Z22.321 Carrier or suspected carrier of Methicillin susceptible Staphylococcus aureus
CPT/HCPCS: 36246; 36415; 36569; 71010; 73630; 74000; 75710; 76937; 77001; 80048; 80053; 80202; 82962; 83605; 83735; 83880; 84100; 84134; 84484; 85025; 85347; 85610; 85651; 85730; 86140; 87040; 87070; 87077; 87116; 87186; 87205; 87493; 88307; 88311; 93005; 93971; 96361; 96365; 96366; 96368; 97110; 97163; 97530; 99291; A4216; C1725; C1769; C1893; J0171; J0461; J0690; J0885; J1200; J1580; J1644; J1815; J2250; J2270; J2370; J2405; J2543; J2704; J2765; J3010; J3370; J3490; J7030; J7050; J7060; Q9967

== ENCOUNTER 2017-08-03 18:04 | Inpatient (IN) | payer MEDICARE, MEDICAID ==
[~2017-08-03] VITALS: Ht 165.1 cm; Wt 55.8 kg
[~2017-08-03 18:04] MED LIST changes: -CLOP75TA33 PO
[2017-08-04 03:51] LABS: BASOPHILS % 1.1 % (0.0-2.0); EOSINOPHILS % 1.8 % (0.0-5.0); HEMATOCRIT. 32.5 % (42.0-52.0); HEMOGLOBIN. 10.2 g/dL (14.0-18.0); LYMPHOCYTES % 13.7 % (20.0-50.0); MEAN CORPUSCULAR HEMOGLOBIN 28.3 pg (28.0-32.0); MEAN CORPUSCULAR VOLUME 89.7 fL (80.0-94.0); MEAN PLATELET VOLUME 9.6 fl (7.4-10.4); MONOCYTES % 7.9 % (2.0-8.0); NEUTROPHILS % 75.5 % (40.0-76.0); PLATELET 154 x1000/uL (130-400); RED BLOOD CELL COUNT 3.62 mill/uL (4.7-6.1); RED CELL DISTRIBUTION WIDTH 24.2 % (11.6-14.6)
[2017-08-04 03:58] LABS: INR 1.2; PROTHROMBIN TIME 12.9 sec (9.4-11.6)
[2017-08-04 04:12] LABS: CARBON DIOXIDE 33 mEq/L (21-32); CHLORIDE 96 mEq/L (98-107)
[2017-08-04] MEDS ORDERED: PIPERACILLIN/TAZ 3.375G PREMIX 50 ML IV ONE (07:15)
[2017-08-04] MEDS ORDERED: VANCOMYCIN 1 G PREMIX 200 ML IV ONE (07:15)
[2017-08-04] MEDS ORDERED: SODIUM CHLORIDE 0.9% 1000ML BAG (SEPSIS BOLUS) IV ONE (07:15)
[2017-08-04 07:41] LABS: INR 1.2; PARTIAL THROMBOPLASTIN TIME 37.5 sec (23.4-31.0); PROTHROMBIN TIME 12.5 sec (9.4-11.6)
[2017-08-04 11:00] VITALS: BP 101/43
[2017-08-04 12:00] VITALS: BP 118/49
[2017-08-04 16:00] VITALS: BP 124/49
[2017-08-04] MEDS ORDERED: MORPHINE SULFATE 2 MG/ML CPJ (NOT FOR IM USE) IV PRN (16:15)
[2017-08-04] MEDS ORDERED: ACETAMINOPHEN 650MG/20.3ML UDC PO PRN (16:15)
[2017-08-04] MEDS ORDERED: DEXTROSE 50% WATER 50ML SYRINGE IV PRN ×2 (17:15)
[2017-08-04] MEDS: BLOOD SUGAR DIAGNOSTIC STRIP TEST SCH ×2 (17:40→21:50)
[2017-08-04] MEDS: PIPERACILLIN/TAZ 2.25G PREMIX 50 ML IV SCH (17:52)
[2017-08-04] MEDS: PANTOPRAZOLE 40MG DR TABLET PO SCH (17:52)
[2017-08-04] MEDS: INSULIN LISPRO 100 UNITS/ML SUBCUT SCH ×2 (18:10→21:00)
[2017-08-04 20:00] VITALS: BP 101/41
[2017-08-04] MEDS ORDERED: HYDROCODONE/ACETAMINOPHEN 5/325MG TABLET PO PRN (22:30)
[2017-08-05] VITALS: BP 103/40
[2017-08-05] MEDS: PIPERACILLIN/TAZ 2.25G PREMIX 50 ML IV SCH ×3 (02:06→18:15)
[2017-08-05 04:00] VITALS: BP 103/40
[2017-08-05] MEDS: BLOOD SUGAR DIAGNOSTIC STRIP TEST SCH ×3 (07:08→17:40)
[2017-08-05] MEDS: INSULIN LISPRO 100 UNITS/ML SUBCUT SCH ×3 (07:08→18:10)
[2017-08-05 08:00] VITALS: BP 101/22
[2017-08-05] MEDS: PANTOPRAZOLE 40MG DR TABLET PO SCH (08:08)
[2017-08-05 12:00] VITALS: BP 101/11
[2017-08-05 16:00] VITALS: BP 108/39
[2017-08-05 18:19] VITALS: BP 108/39
[2017-08-06] MEDS ORDERED: FAMOTIDINE 20MG TABLET PO SCH (09:00)
== END 2017-08-05 20:09 | disposition home or self-care (01) | DRG 299 ==
LOC: ER 20:17 → 7WST 08-04 07:35 → ENRESERV 08-04 07:49
PROVIDERS: ADMIT Internal Medicine; ATTEND Internal Medicine
DX: E11.52 Type 2 diabetes mellitus with diabetic peripheral angiopathy with gangrene (principal); N18.6 End stage renal disease; E11.22 Type 2 diabetes mellitus with diabetic chronic kidney disease; E11.40 Type 2 diabetes mellitus with diabetic neuropathy, unspecified; I12.0 Hypertensive chronic kidney disease with stage 5 chronic kidney disease or end stage renal disease; L97.419 Non-pressure chronic ulcer of right heel and midfoot with unspecified severity; E11.319 Type 2 diabetes mellitus with unspecified diabetic retinopathy without macular edema; I25.10 Atherosclerotic heart disease of native coronary artery without angina pectoris; E78.5 Hyperlipidemia, unspecified; E11.621 Type 2 diabetes mellitus with foot ulcer; D64.9 Anemia, unspecified; I25.5 Ischemic cardiomyopathy; Z86.73 Personal history of transient ischemic attack (TIA), and cerebral infarction without residual deficits; Z95.1 Presence of aortocoronary bypass graft; Z99.2 Dependence on renal dialysis; Z95.5 Presence of coronary angioplasty implant and graft; Z79.899 Other long term (current) drug therapy; Z79.82 Long term (current) use of aspirin; Z95.810 Presence of automatic (implantable) cardiac defibrillator; Z95.820 Peripheral vascular angioplasty status with implants and grafts
CPT/HCPCS: 36415; 71010; 73630; 80053; 82947; 82962; 83605; 85025; 85610; 85730; 87040; 93923; 96365; 99285; J1815; J2543; J3370; J7030; J7040

== ENCOUNTER 2018-03-06 19:20 | Inpatient (IN) | payer MEDICARE, OTHER ==
[~2018-03-06] VITALS: Ht 165.1 cm; Wt 57.8 kg
[~2018-03-06 19:20] MED LIST changes: -ACAR50TA PO; -SITA50TA3 PO
[2018-03-06] MEDS ORDERED: MORPHINE SULFATE 4 MG/ML CPJ (NOT FOR IM USE) IV STA (20:31)
[2018-03-06] MEDS ORDERED: ASPIRIN 81MG TABLET PO STA (20:31)
[2018-03-06] MEDS ORDERED: ONDANSETRON HCL 4MG/2ML VIAL IV STA (20:31)
[2018-03-06 21:43] LABS: BASOPHILS % 0.3 % (0.0-2.0); EOSINOPHILS % 3.3 % (0.0-5.0); HEMATOCRIT. 30.9 % (42.0-52.0); HEMOGLOBIN. 10.3 g/dL (14.0-18.0); LYMPHOCYTES % 28.6 % (20.0-50.0); MEAN CORPUSCULAR HEMOGLOBIN 31.6 pg (28.0-32.0); MEAN CORPUSCULAR VOLUME 95.1 fL (80.0-94.0); MEAN PLATELET VOLUME 9.8 fl (7.4-10.4); MONOCYTES % 12.1 % (2.0-8.0); NEUTROPHILS % 55.7 % (40.0-76.0); PLATELET 137 x1000/uL (130-400); RED BLOOD CELL COUNT 3.25 mill/uL (4.7-6.1); RED CELL DISTRIBUTION WIDTH 19.7 % (11.6-14.6)
[2018-03-06 21:49] LABS: CHLORIDE 95 mEq/L (98-107)
[2018-03-06 21:54] LABS: D-DIMER 3.57 mg/L FEU (<0.50); INR 1.1; PARTIAL THROMBOPLASTIN TIME 29.6 sec (23.4-31.0); PROTHROMBIN TIME 11.9 sec (9.4-11.6)
[2018-03-06 22:00] LABS: CREATINE KINASE 32 IU/L (39-308)
[2018-03-07] VITALS (7 sets, daily range): BP systolic 121–134; BP diastolic 51–61
[2018-03-07] MEDS ORDERED: DEXTROSE 50% WATER 50ML SYRINGE IV PRN (03:45)
[2018-03-07] MEDS ORDERED: HYDROCODONE/ACETAMINOPHEN 5/325MG TABLET PO PRN (03:45)
[2018-03-07] MEDS ORDERED: LOPE2CAP PO (04:04)
[2018-03-07] MEDS ORDERED: SITA25TA3 PO (04:04)
[2018-03-07] MEDS ORDERED: AMI2 PO (04:04)
[2018-03-07] MEDS ORDERED: METR500T4 PO (04:04)
[2018-03-07] MEDS ORDERED: LOPE2TAB26 PO (04:04)
[2018-03-07] MEDS ORDERED: PARO10TA74 PO (04:04)
[2018-03-07] MEDS ORDERED: LORA0.5T2 PO (04:04)
[2018-03-07] MEDS ORDERED: METO5TAB2 PO (04:04)
[2018-03-07] MEDS ORDERED: HYDR-4001 PO (04:04)
[2018-03-07] MEDS: BLOOD SUGAR DIAGNOSTIC STRIP TEST SCH ×2 (05:50→21:27)
[2018-03-07] MEDS: INSULIN LISPRO 100 UNITS/ML SUBCUT SCH ×2 (08:02→21:27)
[2018-03-07] MEDS: HEPARIN 5000 UNITS/ML VIAL SUBCUT SCH ×2 (08:56→21:28)
[2018-03-07] MEDS ORDERED: IOHEXOL-350 100 ML BOTTLE ONE (17:00)
[2018-03-08] VITALS: BP 138/91
[2018-03-08 04:00] VITALS: BP 118/30
[2018-03-08] MEDS: INSULIN LISPRO 100 UNITS/ML SUBCUT SCH ×4 (05:36→18:10)
[2018-03-08] MEDS: BLOOD SUGAR DIAGNOSTIC STRIP TEST SCH ×4 (05:36→17:40)
[2018-03-08 07:30] LABS: BASOPHILS % 0.8 % (0.0-2.0); EOSINOPHILS % 3.5 % (0.0-5.0); HEMOGLOBIN. 10.2 g/dL (14.0-18.0); LYMPHOCYTES % 32.5 % (20.0-50.0); MEAN CORPUSCULAR HEMOGLOBIN 31.5 pg (28.0-32.0); MEAN CORPUSCULAR VOLUME 96.1 fL (80.0-94.0); MEAN PLATELET VOLUME 9.8 fl (7.4-10.4); MONOCYTES % 11.4 % (2.0-8.0); NEUTROPHILS % 51.8 % (40.0-76.0); PLATELET 125 x1000/uL (130-400); RED BLOOD CELL COUNT 3.23 mill/uL (4.7-6.1); RED CELL DISTRIBUTION WIDTH 21.1 % (11.6-14.6)
[2018-03-08 07:42] LABS: PHOSPHORUS 3.1 mg/dL (2.5-4.9)
[2018-03-08 07:47] LABS: T4 FREE 1.27 ng/dL (0.76-1.46)
[2018-03-08 08:00] VITALS: BP 141/41
[2018-03-08] MEDS: HEPARIN 5000 UNITS/ML VIAL SUBCUT SCH (09:00)
[2018-03-08 12:00] VITALS: BP 154/38
[2018-03-08 16:00] VITALS: BP 101/45
[2018-03-08 19:07] VITALS: BP 155/64
== END 2018-03-08 20:15 | disposition home or self-care (01) | DRG 291 ==
LOC: ER 19:20 → EDBEDREQTM 03-07 00:13 → EDBEDREQDT 03-07 00:13 → 7WST 03-07 00:13 → EDBEDREQ 03-07 00:13 → ENRESERV 03-07 01:35
PROVIDERS: ADMIT Internal Medicine; ATTEND Internal Medicine
PROC: 5A1D70Z Performance of Urinary Filtration, Intermittent, Less than 6 Hours Per Day (ICD-10-PCS; principal; 2018-03-07)
DX: I13.2 Hypertensive heart and chronic kidney disease with heart failure and with stage 5 chronic kidney disease, or end stage renal disease (principal); N18.6 End stage renal disease; I50.23 Acute on chronic systolic (congestive) heart failure; G93.40 Encephalopathy, unspecified; N25.81 Secondary hyperparathyroidism of renal origin; D64.9 Anemia, unspecified; I25.5 Ischemic cardiomyopathy; I25.10 Atherosclerotic heart disease of native coronary artery without angina pectoris; H54.7 Unspecified visual loss; R07.9 Chest pain, unspecified; E11.22 Type 2 diabetes mellitus with diabetic chronic kidney disease; E03.9 Hypothyroidism, unspecified; E11.21 Type 2 diabetes mellitus with diabetic nephropathy; E11.319 Type 2 diabetes mellitus with unspecified diabetic retinopathy without macular edema; E11.51 Type 2 diabetes mellitus with diabetic peripheral angiopathy without gangrene; Z89.512 Acquired absence of left leg below knee; Z89.511 Acquired absence of right leg below knee; Z95.1 Presence of aortocoronary bypass graft; Z95.810 Presence of automatic (implantable) cardiac defibrillator; Z99.2 Dependence on renal dialysis; Z83.3 Family history of diabetes mellitus; Z82.49 Family history of ischemic heart disease and other diseases of the circulatory system; Z74.01 Bed confinement status; Z79.899 Other long term (current) drug therapy; Z79.82 Long term (current) use of aspirin; I25.2 Old myocardial infarction
CPT/HCPCS: 36415; 71045; 71275; 80048; 80053; 82550; 82962; 83605; 83690; 83735; 83880; 84100; 84439; 84443; 84481; 84484; 85025; 85379; 85610; 85730; 87040; 93005; 96374; 96375; 99285; J1644; J2270; J2405; J7030; Q9967

== ENCOUNTER 2019-08-15 18:51 | Inpatient (IN) | payer MEDICARE, MEDICAID ==
[~2019-08-15] VITALS: Ht 165.1 cm; Wt 49.4 kg
[~2019-08-15 18:51] MED LIST changes: +AMI2 PO; -ASPI-1159 PO; +ASPI-1393 PO; -FERR-63 PO; -FOLI-43 PO; -FOLI0.8T23 PO; +HYDR-4001 PO; +LOPE2CAP PO; +LORA0.5T2 PO; -METO25TA6 PO; +METO5TAB2 PO; +METR-167 PO; +PARO10TA74 PO; +SITA25TA3 PO
[2019-08-15] MEDS ORDERED: SODIUM CHLORIDE 0.9% 500 ML IV ONE (19:22)
[2019-08-15] MEDS ORDERED: CEFTRIAXONE 1 G PREMIX 50 ML IV ONE (19:30)
[2019-08-15 20:00] LABS: BASOPHILS % 0.4 % (0.0-2.0); EOSINOPHILS % 2.9 % (0.0-5.0); HEMATOCRIT. 31.8 % (42.0-52.0); HEMOGLOBIN. 10.8 g/dL (14.0-18.0); LYMPHOCYTES % 18.1 % (20.0-50.0); MEAN CORPUSCULAR HEMOGLOBIN 30.9 pg (28.0-32.0); MEAN CORPUSCULAR VOLUME 91.3 fL (80.0-94.0); MEAN PLATELET VOLUME 10.5 fl (7.4-10.4); MONOCYTES % 10.2 % (2.0-8.0); NEUTROPHILS % 68.4 % (40.0-76.0); PLATELET 92 x1000/uL (130-400); RED BLOOD CELL COUNT 3.48 mill/uL (4.7-6.1); RED CELL DISTRIBUTION WIDTH 15.6 % (11.6-14.6)
[2019-08-15 20:03] LABS: INR 1.2; PROTHROMBIN TIME 11.9 sec (9.6-11.0)
[2019-08-15 20:04] LABS: CHLORIDE 99 mEq/L (98-107)
[2019-08-15] MEDS ORDERED: SODIUM CHLORIDE 0.9% 1,000 ML IV ONE (21:46)
[2019-08-15] MEDS ORDERED: NOREPINEPHRINE 4MG/250ML PMX 250 ML IV ONE (22:00)
[2019-08-16] VITALS (84 sets, daily range): BP systolic 84–149; BP diastolic 24–80
[2019-08-16] MEDS ORDERED: AZITHROMYCIN 500 MG in DEXT 5% WATER 250 ML IV NR (00:15)
[2019-08-16] MEDS ORDERED: VANCOMYCIN 1 G PREMIX 200 ML IV NR (00:15)
[2019-08-16] MEDS ORDERED: NOREPINEPHRINE 4MG/250ML PMX 250 ML IV PRN (04:00)
[2019-08-16] MEDS ORDERED: DEXTROSE 50% WATER 50ML SYRINGE IV PRN (04:00)
[2019-08-16] MEDS: INSULIN LISPRO 100 UNITS/ML SUBCUT SCH ×4 (06:58→21:23)
[2019-08-16] MEDS: BLOOD SUGAR DIAGNOSTIC STRIP TEST SCH ×4 (06:58→21:21)
[2019-08-16] MEDS: PANTOPRAZOLE SODIUM 40 MG/VIAL IV SCH (09:13)
[2019-08-16] MEDS: ASPIRIN 81MG TABLET PO SCH (09:13)
[2019-08-16] MEDS ORDERED: INFLUENZA VIRUS VACCINE(AFLURIA) 0.5ML SYR IM ONE (10:00)
[2019-08-16 10:01] LABS: CREATINE KINASE MB FRACTION 1.6 ng/mL (0.5-3.6)
[2019-08-16] MEDS ORDERED: MIDO5TAB MT (10:55)
[2019-08-16] MEDS ORDERED: TEMA15CA MT (10:55)
[2019-08-16 11:38] LABS: BG CARBOXYHEMOGLOBIN 1.3 % (0.5-1.5); BG DEOXYHEMOGLOBIN 2.7 % (0.0-5.0); BG FRACTION INSPIRED OXYGEN 28; BG HCO3 ACT 27.6 mmol/L (22.0-26.0); BG METHEMOGLOBIN 0.2 % (0.0-1.5); BG OXYGEN SATURATION 97.3 % (92.0-98.5); BG OXYHEMOGLOBIN 95.8 % (94.0-97.0); BG PCO2 42.6 mmHg (35.0-45.0); BG PO2 102.8 mmHg (75.0-100.0); BG SAMPLE SITE RIGHT BRACHIAL; BG TOTAL HEMOGLOBIN 11.5 g/dL (12.0-18.0); BG VENT MODE NASAL CANNULA
[2019-08-16] MEDS: MIDODRINE HCL 5MG TABLET PO SCH ×2 (12:40→17:53)
[2019-08-16] MEDS: PIPERACILLIN/TAZOBACTAM 2.25 G in DEXTROSE 5% WATER 50 ML IV SCH (12:40)
[2019-08-16] MEDS ORDERED: DIPHENHYDRAMINE 50MG/ML VIAL IV PRN (13:00)
[2019-08-16] MEDS ORDERED: LACTULOSE 20G/30ML UDC PO PRN (13:00)
[2019-08-16] MEDS ORDERED: HYDROCODONE/ACETAMINOPHEN 5/325MG TABLET PO PRN (13:00)
[2019-08-16] MEDS: LACTULOSE 20G/30ML UDC PO SCH ×2 (14:52→22:12)
[2019-08-16 18:03] LABS: CREATINE KINASE 204 IU/L (39-308)
[2019-08-16] MEDS: NOREPINEPHRINE 4 MG in DEXTROSE 5% WATER 250 ML IV PRN (18:20)
[2019-08-16] MEDS ORDERED: CEFTRIAXONE 1 G PREMIX 50 ML IV SCH (20:00)
[2019-08-16] MEDS ORDERED: VANCOMYCIN 500 MG PREMIX 100 ML IV NR (20:00)
[2019-08-16] MEDS ORDERED: LACTULOSE 20G/30ML UDC PO SCH (22:00)
[2019-08-16] MEDS ORDERED: AZITHROMYCIN 500 MG in DEXT 5% WATER 250 ML IV SCH (23:00)
[2019-08-17] VITALS (82 sets, daily range): BP systolic 44–152; BP diastolic 20–125
[2019-08-17] MEDS: PIPERACILLIN/TAZOBACTAM 2.25 G in DEXTROSE 5% WATER 50 ML IV SCH ×2 (01:37→13:07)
[2019-08-17 06:07] LABS: CHLORIDE 108 mEq/L (98-107)
[2019-08-17 06:13] LABS: PHOSPHORUS 2.6 mg/dL (2.5-4.9)
[2019-08-17 06:18] LABS: BASOPHILS % 0.8 % (0.0-2.0); EOSINOPHILS % 4.4 % (0.0-5.0); HEMATOCRIT. 37.3 % (42.0-52.0); HEMOGLOBIN. 11.8 g/dL (14.0-18.0); LYMPHOCYTES % 10.5 % (20.0-50.0); MEAN CORPUSCULAR HEMOGLOBIN 30.4 pg (28.0-32.0); MEAN CORPUSCULAR VOLUME 95.9 fL (80.0-94.0); MEAN PLATELET VOLUME 11.3 fl (7.4-10.4); MONOCYTES % 10.9 % (2.0-8.0); NEUTROPHILS % 73.4 % (40.0-76.0); PLATELET 92 x1000/uL (130-400); RED BLOOD CELL COUNT 3.89 mill/uL (4.7-6.1); RED CELL DISTRIBUTION WIDTH 16.4 % (11.6-14.6)
[2019-08-17] MEDS: INSULIN LISPRO 100 UNITS/ML SUBCUT SCH ×4 (06:19→21:00)
[2019-08-17] MEDS: BLOOD SUGAR DIAGNOSTIC STRIP TEST SCH ×4 (06:19→21:18)
[2019-08-17] MEDS: LACTULOSE 20G/30ML UDC PO SCH ×3 (06:23→22:09)
[2019-08-17] MEDS: MIDODRINE HCL 5MG TABLET PO SCH ×3 (08:05→16:01)
[2019-08-17] MEDS: PANTOPRAZOLE SODIUM 40 MG/VIAL IV SCH (08:05)
[2019-08-17] MEDS: ASPIRIN 81MG TABLET PO SCH (08:06)
[2019-08-18] VITALS (89 sets, daily range): BP systolic 87–137; BP diastolic 36–95
[2019-08-18] MEDS: PIPERACILLIN/TAZOBACTAM 2.25 G in DEXTROSE 5% WATER 50 ML IV SCH ×2 (01:28→12:37)
[2019-08-18 05:47] LABS: BASOPHILS % 0.9 % (0.0-2.0); EOSINOPHILS % 9.3 % (0.0-5.0); HEMATOCRIT. 32.2 % (42.0-52.0); HEMOGLOBIN. 10.7 g/dL (14.0-18.0); LYMPHOCYTES % 15.6 % (20.0-50.0); MEAN CORPUSCULAR HEMOGLOBIN 30.7 pg (28.0-32.0); MEAN CORPUSCULAR VOLUME 92.9 fL (80.0-94.0); MEAN PLATELET VOLUME 10.6 fl (7.4-10.4); MONOCYTES % 13.7 % (2.0-8.0); NEUTROPHILS % 60.5 % (40.0-76.0); PLATELET 86 x1000/uL (130-400); RED BLOOD CELL COUNT 3.47 mill/uL (4.7-6.1); RED CELL DISTRIBUTION WIDTH 15.6 % (11.6-14.6)
[2019-08-18 05:57] LABS: PHOSPHORUS 3.2 mg/dL (2.5-4.9)
[2019-08-18] MEDS: BLOOD SUGAR DIAGNOSTIC STRIP TEST SCH ×4 (06:49→21:00)
[2019-08-18] MEDS: INSULIN LISPRO 100 UNITS/ML SUBCUT SCH ×4 (06:50→21:00)
[2019-08-18] MEDS: NOREPINEPHRINE 4 MG in DEXTROSE 5% WATER 250 ML IV PRN (06:52)
[2019-08-18] MEDS: LACTULOSE 20G/30ML UDC PO SCH ×3 (06:53→22:44)
[2019-08-18] MEDS: PANTOPRAZOLE SODIUM 40 MG/VIAL IV SCH (09:55)
[2019-08-18] MEDS: MIDODRINE HCL 5MG TABLET PO SCH ×3 (09:55→16:47)
[2019-08-18] MEDS: ASPIRIN 81MG TABLET PO SCH (09:55)
[2019-08-18] MEDS ORDERED: VANCOMYCIN 1 G PREMIX 200 ML IV SCH (14:00)
[2019-08-18] MEDS ORDERED: MIDODRINE HCL 5MG TABLET PO NR (15:45)
[2019-08-19] VITALS (63 sets, daily range): BP systolic 87–131; BP diastolic 27–88
[2019-08-19] MEDS: PIPERACILLIN/TAZOBACTAM 2.25 G in DEXTROSE 5% WATER 50 ML IV SCH (01:09)
[2019-08-19 05:48] LABS: HEMATOCRIT. 33.6 % (42.0-52.0); HEMOGLOBIN. 11.2 g/dL (14.0-18.0); MEAN CORPUSCULAR HEMOGLOBIN 31.1 pg (28.0-32.0); MEAN CORPUSCULAR VOLUME 93.5 fL (80.0-94.0); MEAN PLATELET VOLUME 10.9 fl (7.4-10.4); RED BLOOD CELL COUNT 3.59 mill/uL (4.7-6.1); RED CELL DISTRIBUTION WIDTH 15.8 % (11.6-14.6)
[2019-08-19 05:58] LABS: CHLORIDE 111 mEq/L (98-107)
[2019-08-19 06:03] LABS: PHOSPHORUS 2.1 mg/dL (2.5-4.9)
[2019-08-19 06:06] LABS: PLATELET 43 x1000/uL (130-400)
[2019-08-19] MEDS: BLOOD SUGAR DIAGNOSTIC STRIP TEST SCH ×4 (06:43→21:00)
[2019-08-19] MEDS: LACTULOSE 20G/30ML UDC PO SCH ×3 (06:46→23:10)
[2019-08-19] MEDS: INSULIN LISPRO 100 UNITS/ML SUBCUT SCH ×4 (07:00→21:00)
[2019-08-19] MEDS: PANTOPRAZOLE SODIUM 40 MG/VIAL IV SCH (09:20)
[2019-08-19] MEDS: MIDODRINE HCL 5MG TABLET PO SCH ×3 (09:20→16:29)
[2019-08-19] MEDS ORDERED: LACTULOSE 20G/30ML UDC PO SCH (11:00)
[2019-08-19 12:43] LABS: BASOPHILS % 1.1 % (0.0-2.0); EOSINOPHILS % 7.2 % (0.0-5.0); HEMATOCRIT. 33.3 % (42.0-52.0); MEAN CORPUSCULAR HEMOGLOBIN 30.7 pg (28.0-32.0); MEAN CORPUSCULAR VOLUME 92.6 fL (80.0-94.0); MEAN PLATELET VOLUME 10.4 fl (7.4-10.4); MONOCYTES % 14.3 % (2.0-8.0); NEUTROPHILS % 62.4 % (40.0-76.0); PLATELET 92 x1000/uL (130-400)
[2019-08-19 12:57] LABS: PLATELET ESTIMATE MARKEDLY DECREASED
[2019-08-19] MEDS ORDERED: MIDO10TA MT (14:21)
[2019-08-19] MEDS ORDERED: LACT10SO30 MT (14:50)
[2019-08-19] MEDS: POTASSIUM-SODIUM PHOSPHATE POWDER PACKET PO SCH ×2 (15:52→23:10)
[2019-08-20 04:00] VITALS: BP 101/50
[2019-08-20 05:56] LABS: BASOPHILS % 1.1 % (0.0-2.0); EOSINOPHILS % 8.8 % (0.0-5.0); HEMOGLOBIN. 11.4 g/dL (14.0-18.0); LYMPHOCYTES % 18.7 % (20.0-50.0); MEAN CORPUSCULAR HEMOGLOBIN 30.9 pg (28.0-32.0); MEAN CORPUSCULAR VOLUME 92.4 fL (80.0-94.0); MEAN PLATELET VOLUME 10.7 fl (7.4-10.4); MONOCYTES % 13.6 % (2.0-8.0); NEUTROPHILS % 57.8 % (40.0-76.0); PLATELET 96 x1000/uL (130-400); RED BLOOD CELL COUNT 3.68 mill/uL (4.7-6.1); RED CELL DISTRIBUTION WIDTH 15.8 % (11.6-14.6)
[2019-08-20] MEDS: BLOOD SUGAR DIAGNOSTIC STRIP TEST SCH ×2 (06:15→12:48)
[2019-08-20] MEDS: INSULIN LISPRO 100 UNITS/ML SUBCUT SCH ×2 (06:15→12:40)
[2019-08-20] MEDS: LACTULOSE 20G/30ML UDC PO SCH ×2 (06:19→14:05)
[2019-08-20 06:50] LABS: PHOSPHORUS 3.5 mg/dL (2.5-4.9)
[2019-08-20 08:00] VITALS: BP 99/53
[2019-08-20] MEDS: POTASSIUM-SODIUM PHOSPHATE POWDER PACKET PO SCH (08:29)
[2019-08-20] MEDS: PANTOPRAZOLE SODIUM 40 MG/VIAL IV SCH (08:29)
[2019-08-20] MEDS: MIDODRINE HCL 5MG TABLET PO SCH ×2 (08:29→14:08)
[2019-08-20 17:16] VITALS: BP 107/53
== END 2019-08-20 17:43 | disposition home or self-care (01) | DRG 871 ==
LOC: ER 19:12 → MICUNO 22:03 → EDBEDREQTM 22:09 → EDBEDREQ 22:09 → EDBEDREQSVC 08-16 00:16 → EDBEDREQTM 08-16 00:16 → ENRESERV 08-16 02:14 → 5EST 08-19 01:35 → MICUNO 08-19 01:36 → 8WST 08-19 17:30
PROVIDERS: ADMIT Internal Medicine; ATTEND Internal Medicine
PROC: 5A1D70Z Performance of Urinary Filtration, Intermittent, Less than 6 Hours Per Day (ICD-10-PCS; principal; 2019-08-20)
DX: A41.9 Sepsis, unspecified organism (principal); N18.6 End stage renal disease; G93.40 Encephalopathy, unspecified; R18.8 Other ascites; I13.2 Hypertensive heart and chronic kidney disease with heart failure and with stage 5 chronic kidney disease, or end stage renal disease; D61.818 Other pancytopenia; K76.6 Portal hypertension; K74.60 Unspecified cirrhosis of liver; K52.9 Noninfective gastroenteritis and colitis, unspecified; E11.51 Type 2 diabetes mellitus with diabetic peripheral angiopathy without gangrene; E11.22 Type 2 diabetes mellitus with diabetic chronic kidney disease; D63.1 Anemia in chronic kidney disease; I25.10 Atherosclerotic heart disease of native coronary artery without angina pectoris; I50.9 Heart failure, unspecified; I95.3 Hypotension of hemodialysis; K59.00 Constipation, unspecified; N62 Hypertrophy of breast; Z82.49 Family history of ischemic heart disease and other diseases of the circulatory system; I48.91 Unspecified atrial fibrillation; Z83.3 Family history of diabetes mellitus; Z86.73 Personal history of transient ischemic attack (TIA), and cerebral infarction without residual deficits; Z89.511 Acquired absence of right leg below knee; Z89.512 Acquired absence of left leg below knee; Z95.1 Presence of aortocoronary bypass graft; Z95.810 Presence of automatic (implantable) cardiac defibrillator; Z99.2 Dependence on renal dialysis; Z79.899 Other long term (current) drug therapy; Z79.82 Long term (current) use of aspirin; I25.2 Old myocardial infarction
CPT/HCPCS: 36415; 36600; 71045; 74176; 80048; 80202; 82140; 82375; 82550; 82553; 82805; 82962; 83605; 83735; 84100; 84145; 84484; 90686; 93005; 93306; 96365; 99291; A6261; C9113; J0456; J0696; J1815; J2543; J3370; J3490; J7030; J7060